=== PATIENT | male | born 2000 | race Caucasian/White ===

== ENCOUNTER 2018-07-09 18:46 | Emergency (ER) | payer OTHER ==
[2018-07-09] MEDS ORDERED: AZITHROMYCIN 250 MG TABLET PO ONE (19:21)
[2018-07-09] MEDS ORDERED: LIDOCAINE 1% INJ-PF (10 MG/ML) 30 ML SDV INJ ONE (19:21)
[2018-07-09] MEDS ORDERED: CEFTRIAXONE INJ 250 MG VIAL IM ONE (19:21)
[2018-07-09 19:46] LABS: APPEARANCE,URINE CLEAR; BILIRUBIN,URINE NEGATIVE (NEGATIVE); COLOR,URINE YELLOW; GLUCOSE, URINE NEGATIVE (NEGATIVE); KETONES,URINE NEGATIVE (NEGATIVE); LEUKOCYTE ESTERASE,URINE NEGATIVE (NEGATIVE); NITRITE,URINE NEGATIVE (NEGATIVE); PROTEIN,URINE NEGATIVE (NEGATIVE); URINE SPECIFIC GRAVITY 1.023
--- NOTE | 2018-07-09 20:06 | ER Document Report ---
ED GI/ - General Chief Complaint: STD Exposure Stated Complaint: URINARY PROBLEM Time Seen by Provider: 07/09/18 19:20 Mode of Arrival: Ambulatory Information source: Patient Notes: 18-year-old male presented to ED for complaint of his who is he from has called him and told him that she is positive for chlamydia. He states he needs to come in and get checked for STDs. He states he has no symptoms at this time. He denies any drainage any pain or any discomfort. Patient is alert oriented respirations regular and unlabored speaking in full sentences. He states he did have a bunion surgery on his right foot a couple days ago and is taken medications for that but no other problems at this time. Patient is active duty . TRAVEL OUTSIDE OF THE [place] IN LAST 30 DAYS: No - HPI Patient complains to provider of: Other - His who is from called him and told him that she has chlamydia. Pain Level: Denies Sexual history: STD exposure Associated symptoms: None Exacerbated by: Denies Relieved by: Denies Similar symptoms previously: No Recently seen / treated by doctor: No Past Medical History - General Information source: Patient - Social History Smoking Status: Never Smoker Chew tobacco use (# tins/day): Yes Frequency of alcohol use: None Drug Abuse: None Occupation: active duty Lives with: Alone Family History: Reviewed & Not Pertinent Patient has suicidal ideation: No Patient has homicidal ideation: No - Past Medical History Cardiac Medical History: Reports: None Pulmonary Medical History: Reports: None EENT Medical History: Reports: None Neurological Medical History: Reports: None Endocrine Medical History: Reports: None Renal/ Medical History: Reports: None Malignancy Medical History: Reports None GI Medical History: Reports: None Musculoskeletal Medical History: Reports None Skin Medical History: Reports None Psychiatric Medical History: Reports: None Traumatic Medical History: Reports: None Infectious Medical History: Reports: None Past Surgical History: Reports: Hx Orthopedic Surgery - Bunion surgery Sunday - Immunizations Immunizations up to date: Yes Hx Diphtheria, Pertussis, Tetanus Vaccination: Yes Review of Systems - Review of Systems Constitutional: No symptoms reported EENT: No symptoms reported Cardiovascular: No symptoms reported Respiratory: No symptoms reported Gastrointestinal: No symptoms reported Genitourinary: No symptoms reported Male Genitourinary: No symptoms reported, Other - STD exposure from Musculoskeletal: No symptoms reported Skin: No symptoms reported Hematologic/Lymphatic: No symptoms reported Neurological/Psychological: No symptoms reported Physical Exam - Vital signs Vitals: Temp Pulse Resp BP Pulse Ox 98.7 F 80 16 128/77 H 98 07/09/18 19:01 07/09/18 19:01 07/09/18 19:01 07/09/18 19:01 07/09/18 19:01 Interpretation: Normal - General General appearance: Appears well, Alert - HEENT Head: Normocephalic, Atraumatic Eyes: Normal Pupils: PERRL - Respiratory Respiratory status: No respiratory distress Chest status: Nontender Breath sounds: Normal Chest palpation: Normal - Cardiovascular Rhythm: Regular Heart sounds: Normal auscultation Murmur: No - Abdominal Inspection: Normal Distension: No distension Bowel sounds: Normal Tenderness: Nontender Organomegaly: No organomegaly - Back Back: Normal, Nontender - Extremities General upper extremity: Normal inspection, Nontender, Normal color, Normal ROM, Normal temperature General lower extremity: Normal color, Normal ROM, Normal temperature, Normal weight bearing. No: Darcie's sign Foot: Tender, Other - Postop boot and dressings to right foot from recent bunion surgery - Neurological Neuro grossly intact: Yes Cognition: Normal Orientation: AAOx4 Sean Coma Scale Eye Opening: Spontaneous [place] Coma Scale Verbal: Oriented [place] Coma Scale Motor: Obeys Commands [place] Coma Scale Total: 15 Speech: Normal Motor strength normal: LUE, RUE, LLE, RLE Sensory: Normal - Psychological Associated symptoms: Normal affect, Normal mood - Skin Skin Temperature: Warm Skin Moisture: Dry Skin Color: Normal Course - Re-evaluation Re-evalutation: 07/09/18 20:10 Patient was treated with azithromycin and Rocephin for possible STD exposure. He states that his ex- calling told him that she had chlamydia. He states he needs to be checked to see if he has positive chlamydia. He was treated and discharged and instructed to call back in 2 hours for his results. He was informed that he should not have any sexual intercourse until he is cleared. If his test to come back positive he does not have any sexual intercourse for 10 days. Patient verbalized understanding and agreement. - Vital Signs Vital signs: Temp Pulse Resp BP Pulse Ox 98.7 F 80 16 128/77 H 98 07/09/18 19:01 07/09/18 19:01 07/09/18 19:01 07/09/18 19:01 07/09/18 19:01 - Laboratory Laboratory results interpreted by me: 07/09/18 18:50 Urine Urobilinogen 2.0 H Discharge - Discharge Clinical Impression: STD exposure Condition: Stable Disposition: HOME, SELF-CARE Additional Instructions: You have seen today for complaint of STD exposure to your ex/. You state you do not have any symptoms at this time. Your urine is negative for urinary tract infection. You have been treated with azithromycin and Rocephin IM. Please did not have any sexual interactions until you have spoken with the provider xuan when you call back. Call back at [phone] and asked to speak to Neelima the results. Rocephin You have been given an injection of an antibiotic called Rocephin (ceftriaxone). Sometimes the injection must be combined with antibiotic pills. For some infections, such as an uncomplicated ear infection, Rocephin provides all the antibiotic that's needed. The antibiotic will be in your body for about two days. For serious infections, we usually repeat doses of Rocephin daily. Side effects are very unusual following a shot. Women may develop vaginal yeast infections, and babies can get yeast (thrush) in the mouth following the use of antibiotics. Contact your physician if you have symptoms with this medication. Allergy to this antibiotic can result in hives, wheezing, faintness, or itching. If symptoms of allergy occur, call the doctor at once. Azithromycin Azithromycin (Zithromax) is a broad spectrum antibiotic in the same class as erythromycin. It can treat a variety of bacterial infections, but is most frequently used for respiratory infections. Azithromycin is extremely long-lasting. It accumulates in body tissues and continues to kill bacteria for many days. In order to improve absorption, Azithromycin should be taken at least one hour before or two hours after a meal. It does not have the same strong tendency to upset the stomach as erythromycin and is usually very well tolerated. Patients who have had a rash or other true allergic reactions to erythromycin should not take this medication. Call if you develop gastrointestinal distress, severe diarrhea, rash, hives, itching, or shortness of breath. FOLLOW-UP CARE: If you have been referred to a physician for follow-up care, call the physicians office for an appointment as you were instructed or within the next two days. If you experience worsening or a significant change in your symptoms, notify the physician immediately or return to the Emergency Department at any time for re-evaluation. Forms: Elevated Blood Pressure
[2018-07-09 20:18] VITALS: BP 132/67
[2018-07-09 21:09] LABS: CHLAM PCR DETECTED (NOT DETECT); GON PCR NOT DETECTED (NOT DETECT)
== END 2018-07-09 20:18 | disposition home or self-care (01) ==
LOC: ER 18:46
DX: Z20.2 Contact with and (suspected) exposure to infections with a predominantly sexual mode of transmission (principal); Z98.890 Other specified postprocedural states
CPT/HCPCS: 99283; 96372; 81001; 87491; 87591; J3490; J0696